=== PATIENT | male | born 1970 | race Caucasian/White ===

== ENCOUNTER 2020-10-15 09:51 | Inpatient (IN) ==
[2020-10-15 10:34] LABS: ABG Base Excess -5 mEq/L (-2 to 3); ABG HCO3 21 mEq/L (21-27); ABG Oxygen Saturation 93 % (95-98); ABG PCO2 37 mmHg (35-45); ABG PH 7.35 pH Units (7.32-7.45); ABG PO2 71 mmHg (85-104); ABG TCO2 22 mEq/L (20-26); Blood Gas Modality ASSIST CONTROL; Blood Gas VT 450 cc
[2020-10-15 10:48] LABS: Bilirubin,Urine Negative (Negative); Blood,Urine Moderate (Negative); Clarity,Urine Clear (Clear); Color,Urine Yellow (Yellow); Glucose,Urine (UA) Normal (Normal); Ketones,Urine Negative (Negative); Leukocyte Esterase,Urine Negative (Negative); Mucus,Urine Few per lpf (None-Few); Nitrite,Urine Negative (Negative); Protein,Urine Trace mg/dL (Neg-Trace); Specific Gravity,Urine 1.022 (1.010-1.025); Squamous Epithelial Cell,Urine Few per hpf (None-Few); Urobilinogen,Urine Normal (Normal); WBC,Urine 0-3 per hpf (0-3)
[2020-10-15 11:10] LABS: Amphetamine Screen,Urine Negative ng/mL (Cutoff=1000); Barbiturate Screen,Urine Negative ng/mL (Cutoff=200); Benzodiazepines Screen,Urine Positive ng/mL (Cutoff=200); Cannabinoid Screen,Urine Negative ng/mL (Cutoff = 50); Cocaine Screen,Urine Negative ng/mL (Cutoff= 300); Opiate Screen,Urine Negative ng/mL (Cutoff=300); Phencyclidine Screen,Urine Negative ng/mL (Cutoff=25)
[2020-10-15 11:10] LABS: Basophils % 0.3 %; Eosinophils % 0.1 %; Hemoglobin 12.5 g/dL (12.9-16.9)
[2020-10-15 11:12] LABS: Hematocrit 36.8 % (37.5-50.1); Immature Platelets 4.3 % (1.1-6.1); Lymphocytes % 13.2 %; Mean Corpuscular Hemoglobin 31.6 pg (28.0-33.3); Mean Corpuscular Volume 92.9 fL (83.0-100.0); Mean Platelet Volume 11.4 fL (9.4-12.4); Monocytes # 0.5 K/mcL (0.0-1.3); Monocytes % 6.1 %; Neutrophils # 5.8 K/mcL (1.6-8.9); Red Blood Count 3.96 M/mcL (4.19-5.50); Red Cell Distribution Width 16.9 % (11.5-14.5); Segmented Neutrophils % 79.3 %; White Blood Count 7.3 K/mcL (4.3-11.1)
[2020-10-15 11:21] LABS: Acetaminophen < 10 mcg/mL (10-20); Alanine Aminotransferase 45 Units/L (7-52); Albumin 2.8 g/dL (3.5-5.7); Albumin/Globulin Ratio 0.5 (1.1-2.2); Alkaline Phosphatase 127 Units/L (34-104); Aspartate Amino Transferase 89 Units/L (13-39); BUN/Creatinine Ratio 12 (6-26); Bilirubin,Direct 0.8 mg/dL (0.0-0.2); Bilirubin,Indirect 1.6 mg/dL (0.0-1.0); Bilirubin,Total 2.4 mg/dL (0.3-1.0); Blood Urea Nitrogen 15 mg/dL (6-20); Calcium 9.6 mg/dL (8.6-10.3); Carbon Dioxide 18 mEq/L (23-29); Chloride 109 mEq/L (98-107); Ethanol < 10 mg/dL (Less than 10); Globulin 5.2 g/dL (2.4-3.5); Glucose 162 mg/dL (70-105); Osmolality,Calculated 292 (280-300); Platelet Count 61 K/mcL (140-400); Potassium 3.5 mEq/L (3.5-5.1); Salicylate 12.6 mg/dL (15.0-30.0); Sodium 139 mEq/L (136-145); eGFR For African Americans > 60 (> 60); eGFR For Non-African Americans > 60 (> 60)
[2020-10-15 11:22] LABS: Platelet Estimate Decreased (Normal)
[2020-10-15 11:23] LABS: Troponin I < 0.03 ng/mL (< 0.04)
[2020-10-15] MEDS ORDERED: Cefepime HCl 1,000 MG in 0.9 % Sodium Chloride Mini Bag 100 ML IVPB ONE (12:22)
[2020-10-15] MEDS ORDERED: Naloxone 0.4 MG/ML INJ IVP PRN (13:50)
[2020-10-15] MEDS ORDERED: Artificial Tears SOLN 15 ML BOTTLE BOTH EYES PRN (13:50)
[2020-10-15] MEDS ORDERED: Acetaminophen 325 MG TABLET PO PRN (13:50)
[2020-10-15] MEDS: FentaNYL (PF) 1,000 MCG/100 ML IV.SOLN IVC SCH (14:25)
[2020-10-15] MEDS: Octreotide 400 MCG in 0.9 % Sodium Chloride 100 ML IVC SCH ×2 (14:32→23:16)
[2020-10-15] MEDS: Pantoprazole 40 MG in 0.9 % Sodium Chloride Mini Bag 100 ML IVC SCH ×3 (14:46→20:29)
[2020-10-15 14:50] LABS: INR 1.8; Prothrombin Time 20.8 Seconds (9.4-12.1)
[2020-10-15 14:53] LABS: Activated Partial Thrombo Time 36.4 Seconds (26.0-36.0)
[2020-10-15] MEDS ORDERED: Sodium Bicarbonate 150 MEQ in D5% in Water 1,000 ML IVC SCH (17:15)
[2020-10-15 17:24] LABS: ABG Base Excess -2 mEq/L (-2 to 3); ABG HCO3 22 mEq/L (21-27); ABG Oxygen Saturation 97 % (95-98); ABG PCO2 31 mmHg (35-45); ABG PH 7.45 pH Units (7.32-7.45); ABG PO2 86 mmHg (85-104); ABG TCO2 23 mEq/L (20-26); Blood Gas Modality ASSIST CONTROL; Blood Gas VT 450 cc
[2020-10-15 17:45] LABS: Hematocrit 34.1 % (37.5-50.1); Hemoglobin 11.5 g/dL (12.9-16.9)
[2020-10-15] MEDS: Cefepime HCl 2,000 MG in Water for inj. (sterile) 20 ML IVP SCH (18:40)
[2020-10-15] MEDS: Artificial Tears SOLN 15 ML BOTTLE BOTH EYES SCH ×3 (18:40→23:16)
[2020-10-15] MEDS: Budesonide/Formoterol 160/4.5 1 PUFF INH IH SCH (20:04)
[2020-10-15] MEDS: Chlorhexidine Rinse 15 ML MOUTHWASH MM SCH (20:29)
[2020-10-15] MEDS: Lactulose Oral Soln 20 GM/30 ML UDC PO SCH (20:29)
[2020-10-15] MEDS ORDERED: *HR* Etomidate 20 MG/10 ML AMPUL IVP ONE (23:32)
[2020-10-15] MEDS ORDERED: *HR* Rocuronium Bromide 50 MG/5 ML VIAL IVP ONE (23:32)
[2020-10-16] MEDS: Pantoprazole 40 MG in 0.9 % Sodium Chloride Mini Bag 100 ML IVC SCH ×4 (01:29→18:30)
[2020-10-16] MEDS: Octreotide 400 MCG in 0.9 % Sodium Chloride 100 ML IVC SCH ×3 (02:55→19:45)
[2020-10-16] MEDS: Artificial Tears SOLN 15 ML BOTTLE BOTH EYES SCH ×6 (03:06→23:23)
[2020-10-16 03:22] LABS: VBG Ionized Calcium 1.21 mmol/L (1.15-1.35)
[2020-10-16 03:26] LABS: Immature Granulocytes % 0.7 % (0-4)
[2020-10-16 03:27] LABS: Basophils % 0.7 %; Eosinophils # 0.1 K/mcL (0.0-0.6); Hemoglobin 10.9 g/dL (12.9-16.9); Immature Platelets 4.4 % (1.1-6.1); Lymphocytes # 1.7 K/mcL (0.6-4.6); Lymphocytes % 29.8 %; Mean Corpuscular Hemoglobin 31.5 pg (28.0-33.3); Mean Corpuscular Volume 95.4 fL (83.0-100.0); Mean Platelet Volume 11.8 fL (9.4-12.4); Monocytes # 0.4 K/mcL (0.0-1.3); Monocytes % 7.8 %; Neutrophils # 3.3 K/mcL (1.6-8.9); Red Blood Count 3.46 M/mcL (4.19-5.50); Red Cell Distribution Width 17.6 % (11.5-14.5); White Blood Count 5.6 K/mcL (4.3-11.1)
[2020-10-16 03:28] LABS: Platelet Count 47 K/mcL (140-400)
[2020-10-16 03:38] LABS: INR 1.8
[2020-10-16 03:39] LABS: Alanine Aminotransferase 40 Units/L (7-52); Albumin 2.3 g/dL (3.5-5.7); Albumin/Globulin Ratio 0.6 (1.1-2.2); Alkaline Phosphatase 85 Units/L (34-104); Aspartate Amino Transferase 105 Units/L (13-39); BUN/Creatinine Ratio 15 (6-26); Bilirubin,Total 1.9 mg/dL (0.3-1.0); Blood Urea Nitrogen 17 mg/dL (6-20); Calcium 8.8 mg/dL (8.6-10.3); Carbon Dioxide 24 mEq/L (23-29); Chloride 111 mEq/L (98-107); Creatine Kinase 941 Units/L (30-223); Globulin 4.1 g/dL (2.4-3.5); Glucose 124 mg/dL (70-105); Osmolality,Calculated 295 (280-300); Potassium 3.4 mEq/L (3.5-5.1); Sodium 141 mEq/L (136-145); Total Protein 6.4 g/dL (6.4-8.9); eGFR For African Americans > 60 (> 60); eGFR For Non-African Americans > 60 (> 60)
[2020-10-16 03:40] LABS: Alanine Aminotransferase 40 Units/L (7-52); Albumin 2.3 g/dL (3.5-5.7); Albumin/Globulin Ratio 0.5 (1.1-2.2); Alkaline Phosphatase 85 Units/L (34-104); Aspartate Amino Transferase 103 Units/L (13-39); BUN/Creatinine Ratio 15 (6-26); Bilirubin,Direct 0.7 mg/dL (0.0-0.2); Bilirubin,Indirect 1.3 mg/dL (0.0-1.0); Blood Urea Nitrogen 18 mg/dL (6-20); Calcium 9.1 mg/dL (8.6-10.3); Carbon Dioxide 25 mEq/L (23-29); Chloride 111 mEq/L (98-107); Globulin 4.2 g/dL (2.4-3.5); Glucose 129 mg/dL (70-105); Magnesium 1.8 mg/dL (1.6-2.6); Osmolality,Calculated 294 (280-300); Phosphorous 4.5 mg/dL (2.7-4.5); Potassium 3.4 mEq/L (3.5-5.1); Sodium 140 mEq/L (136-145); Total Protein 6.5 g/dL (6.4-8.9); eGFR For African Americans > 60 (> 60); eGFR For Non-African Americans > 60 (> 60)
[2020-10-16] MEDS: FentaNYL (PF) 1,000 MCG/100 ML IV.SOLN IVC SCH ×2 (04:10→19:30)
[2020-10-16 04:24] LABS: ABG Base Excess 1 mEq/L (-2 to 3); ABG HCO3 25 mEq/L (21-27); ABG Oxygen Saturation 91 % (95-98); ABG PCO2 38 mmHg (35-45); ABG PH 7.43 pH Units (7.32-7.45); ABG PO2 58 mmHg (85-104); ABG TCO2 26 mEq/L (20-26); Blood Gas Modality ASSIST CONTROL; Blood Gas VT 450 cc
[2020-10-16] MEDS: Cefepime HCl 2,000 MG in Water for inj. (sterile) 20 ML IVP SCH ×2 (05:19→17:09)
[2020-10-16] MEDS: Chlorhexidine Rinse 15 ML MOUTHWASH MM SCH ×2 (07:47→21:13)
[2020-10-16] MEDS: Budesonide/Formoterol 160/4.5 1 PUFF INH IH SCH ×2 (07:47→20:24)
[2020-10-16] MEDS: Lactulose Oral Soln 20 GM/30 ML UDC PO SCH ×2 (07:47→21:11)
[2020-10-16 22:19] LABS: Amphetamine Screen,Urine Negative ng/mL (Cutoff=1000); Barbiturate Screen,Urine Negative ng/mL (Cutoff=200); Benzodiazepines Screen,Urine Positive ng/mL (Cutoff=200); Cannabinoid Screen,Urine Negative ng/mL (Cutoff = 50); Cocaine Screen,Urine Negative ng/mL (Cutoff= 300); Opiate Screen,Urine Negative ng/mL (Cutoff=300); Phencyclidine Screen,Urine Negative ng/mL (Cutoff=25)
[2020-10-17] MEDS: Pantoprazole 40 MG in 0.9 % Sodium Chloride Mini Bag 100 ML IVC SCH ×2 (00:07→05:43)
[2020-10-17] MEDS: Artificial Tears SOLN 15 ML BOTTLE BOTH EYES SCH ×6 (04:34→23:11)
[2020-10-17] MEDS: Octreotide 400 MCG in 0.9 % Sodium Chloride 100 ML IVC SCH (04:35)
[2020-10-17 04:38] LABS: ABG Base Excess 0 mEq/L (-2 to 3); ABG HCO3 27 mEq/L (21-27); ABG Oxygen Saturation 93 % (95-98); ABG PCO2 48 mmHg (35-45); ABG PH 7.36 pH Units (7.32-7.45); ABG PO2 71 mmHg (85-104); ABG TCO2 28 mEq/L (20-26); Blood Gas Modality ASSIST CONTROL; Blood Gas VT 450 cc
[2020-10-17] MEDS: Cefepime HCl 2,000 MG in Water for inj. (sterile) 20 ML IVP SCH ×2 (05:44→17:28)
[2020-10-17 06:44] LABS: Red Cell Distribution Width 18.1 % (11.5-14.5)
[2020-10-17 06:46] LABS: Basophils # 0.1 K/mcL (0.0-0.2); Basophils % 1.3 %; Eosinophils # 0.1 K/mcL (0.0-0.6); Eosinophils % 2.5 %; Hematocrit 34.6 % (37.5-50.1); Hemoglobin 11.1 g/dL (12.9-16.9); Immature Granulocytes % 0.8 % (0-4); Immature Platelets 3.9 % (1.1-6.1); Lymphocytes # 1.3 K/mcL (0.6-4.6); Lymphocytes % 27.1 %; Mean Corpuscular HGB Conc 32.1 g/dL (31.6-35.5); Mean Corpuscular Hemoglobin 31.9 pg (28.0-33.3); Mean Corpuscular Volume 99.4 fL (83.0-100.0); Mean Platelet Volume 11.1 fL (9.4-12.4); Monocytes # 0.4 K/mcL (0.0-1.3); Monocytes % 8.2 %; Neutrophils # 2.9 K/mcL (1.6-8.9); Nucleated Red Blood Cells 0.6 /100 WBC (0); Platelet Count 50 K/mcL (140-400); Red Blood Count 3.48 M/mcL (4.19-5.50); Segmented Neutrophils % 60.1 %; White Blood Count 4.8 K/mcL (4.3-11.1)
[2020-10-17 07:02] LABS: BUN/Creatinine Ratio 18 (6-26); Blood Urea Nitrogen 26 mg/dL (6-20); Calcium 8.9 mg/dL (8.6-10.3); Carbon Dioxide 25 mEq/L (23-29); Chloride 110 mEq/L (98-107); Glucose 93 mg/dL (70-105); Magnesium 2.1 mg/dL (1.6-2.6); Osmolality,Calculated 288 (280-300); Sodium 137 mEq/L (136-145); eGFR For African Americans > 60 (> 60); eGFR For Non-African Americans 50 (> 60)
[2020-10-17] MEDS: Budesonide/Formoterol 160/4.5 1 PUFF INH IH SCH ×2 (07:54→19:34)
[2020-10-17] MEDS: Lactulose Oral Soln 20 GM/30 ML UDC PO SCH (07:54)
[2020-10-17] MEDS: Chlorhexidine Rinse 15 ML MOUTHWASH MM SCH ×2 (07:54→19:20)
[2020-10-17] MEDS: FentaNYL (PF) 1,000 MCG/100 ML IV.SOLN IVC SCH ×2 (10:50→20:43)
[2020-10-17] MEDS ORDERED: Lactulose 200 GM, Sodium Chloride IRRigation 700 ML RC ONE (11:34)
[2020-10-17] MEDS: D5% in 0.45% NACL 1,000 ML IVC SCH ×2 (12:04→20:44)
[2020-10-17 15:15] LABS: Alanine Aminotransferase 49 Units/L (7-52); Albumin 2.3 g/dL (3.5-5.7); Albumin/Globulin Ratio 0.5 (1.1-2.2); Alkaline Phosphatase 74 Units/L (34-104); Aspartate Amino Transferase 139 Units/L (13-39); Bilirubin,Direct 1.3 mg/dL (0.0-0.2); Bilirubin,Indirect 1.8 mg/dL (0.0-1.0); Bilirubin,Total 3.1 mg/dL (0.3-1.0); Globulin 4.3 g/dL (2.4-3.5); Total Protein 6.6 g/dL (6.4-8.9)
[2020-10-18] MEDS: Artificial Tears SOLN 15 ML BOTTLE BOTH EYES SCH ×5 (04:11→20:17)
[2020-10-18] MEDS: FentaNYL (PF) 1,000 MCG/100 ML IV.SOLN IVC SCH ×2 (04:23→13:19)
[2020-10-18 04:31] LABS: ABG Base Excess 1 mEq/L (-2 to 3); ABG HCO3 27 mEq/L (21-27); ABG Oxygen Saturation 89 % (95-98); ABG PCO2 53 mmHg (35-45); ABG PH 7.32 pH Units (7.32-7.45); ABG PO2 63 mmHg (85-104); ABG TCO2 29 mEq/L (20-26); Blood Gas Modality ASSIST CONTROL; Blood Gas VT 450 cc
[2020-10-18] MEDS: D5% in 0.45% NACL 1,000 ML IVC SCH ×2 (05:15→17:34)
[2020-10-18] MEDS: Cefepime HCl 2,000 MG in Water for inj. (sterile) 20 ML IVP SCH ×2 (05:16→17:30)
[2020-10-18 05:28] LABS: Mean Corpuscular Volume 99.4 fL (83.0-100.0)
[2020-10-18 05:30] LABS: Basophils % 0.7 %; Eosinophils # 0.1 K/mcL (0.0-0.6); Eosinophils % 2.1 %; Hematocrit 33.4 % (37.5-50.1); Hemoglobin 10.7 g/dL (12.9-16.9); Immature Granulocytes % 0.9 % (0-4); Immature Platelets 2.6 % (1.1-6.1); Lymphocytes # 1.1 K/mcL (0.6-4.6); Lymphocytes % 24.8 %; Mean Corpuscular Hemoglobin 31.8 pg (28.0-33.3); Mean Platelet Volume 11.2 fL (9.4-12.4); Monocytes # 0.3 K/mcL (0.0-1.3); Monocytes % 6.7 %; Neutrophils # 2.8 K/mcL (1.6-8.9); Nucleated Red Blood Cells 0.5 /100 WBC (0); Red Blood Count 3.36 M/mcL (4.19-5.50); Red Cell Distribution Width 17.3 % (11.5-14.5); Segmented Neutrophils % 64.8 %; White Blood Count 4.3 K/mcL (4.3-11.1)
[2020-10-18 05:31] LABS: INR 1.6; Platelet Count 47 K/mcL (140-400); Prothrombin Time 18.4 Seconds (9.4-12.1)
[2020-10-18 05:34] LABS: Activated Partial Thrombo Time 35.8 Seconds (26.0-36.0)
[2020-10-18 05:39] LABS: BUN/Creatinine Ratio 20 (6-26); Blood Urea Nitrogen 27 mg/dL (6-20); Calcium 8.6 mg/dL (8.6-10.3); Carbon Dioxide 26 mEq/L (23-29); Chloride 111 mEq/L (98-107); Creatine Kinase 312 Units/L (30-223); Glucose 85 mg/dL (70-105); Magnesium 1.9 mg/dL (1.6-2.6); Osmolality,Calculated 290 (280-300); Phosphorous 3.8 mg/dL (2.7-4.5); Potassium 4.2 mEq/L (3.5-5.1); Sodium 138 mEq/L (136-145); eGFR For African Americans > 60 (> 60); eGFR For Non-African Americans 56 (> 60)
[2020-10-18 05:40] LABS: Albumin 2.2 g/dL (3.5-5.7); Albumin/Globulin Ratio 0.6 (1.1-2.2); Bilirubin,Direct 2.6 mg/dL (0.0-0.2); Bilirubin,Indirect 1.6 mg/dL (0.0-1.0); Bilirubin,Total 4.2 mg/dL (0.3-1.0); Total Protein 6.2 g/dL (6.4-8.9)
[2020-10-18] MEDS: Budesonide/Formoterol 160/4.5 1 PUFF INH IH SCH ×2 (07:31→20:12)
[2020-10-18] MEDS: Chlorhexidine Rinse 15 ML MOUTHWASH MM SCH ×2 (08:01→21:28)
[2020-10-18] MEDS: Pantoprazole 40 MG VIAL IVP SCH (08:01)
[2020-10-18] MEDS: Dexmedetomidine HCl 400 MCG/100 ML MLS IVC SCH (11:30)
[2020-10-18] MEDS ORDERED: Lactulose 200 GM, Sodium Chloride IRRigation 700 ML RC ONE (12:23)
[2020-10-19] MEDS: Cefepime HCl 2,000 MG in Water for inj. (sterile) 20 ML IVP SCH ×2 (05:51→17:06)
[2020-10-19] MEDS: D5% in 0.45% NACL 1,000 ML IVC SCH ×2 (05:52→13:28)
[2020-10-19 06:21] LABS: Hemoglobin 10.4 g/dL (12.9-16.9); Mean Corpuscular Volume 96.6 fL (83.0-100.0)
[2020-10-19 06:23] LABS: Basophils % 0.7 %; Eosinophils # 0.1 K/mcL (0.0-0.6); Eosinophils % 1.6 %; Hematocrit 31.1 % (37.5-50.1); Immature Granulocytes % 0.7 % (0-4); Lymphocytes # 0.9 K/mcL (0.6-4.6); Lymphocytes % 19.5 %; Mean Corpuscular HGB Conc 33.4 g/dL (31.6-35.5); Mean Corpuscular Hemoglobin 32.3 pg (28.0-33.3); Monocytes # 0.3 K/mcL (0.0-1.3); Monocytes % 5.6 %; Neutrophils # 3.2 K/mcL (1.6-8.9); Nucleated Red Blood Cells 0.4 /100 WBC (0); Red Blood Count 3.22 M/mcL (4.19-5.50); Red Cell Distribution Width 16.8 % (11.5-14.5); Segmented Neutrophils % 71.9 %; White Blood Count 4.5 K/mcL (4.3-11.1)
[2020-10-19 06:26] LABS: Platelet Count 44 K/mcL (140-400)
[2020-10-19 06:48] LABS: Alanine Aminotransferase 47 Units/L (7-52); Albumin 2.2 g/dL (3.5-5.7); Albumin/Globulin Ratio 0.6 (1.1-2.2); Alkaline Phosphatase 62 Units/L (34-104); Aspartate Amino Transferase 152 Units/L (13-39); BUN/Creatinine Ratio 24 (6-26); Bilirubin,Direct 4.7 mg/dL (0.0-0.2); Bilirubin,Indirect 2.6 mg/dL (0.0-1.0); Bilirubin,Total 7.3 mg/dL (0.3-1.0); Blood Urea Nitrogen 27 mg/dL (6-20); Calcium 8.9 mg/dL (8.6-10.3); Carbon Dioxide 24 mEq/L (23-29); Chloride 113 mEq/L (98-107); Globulin 3.8 g/dL (2.4-3.5); Glucose 103 mg/dL (70-105); Osmolality,Calculated 297 (280-300); Potassium 4.1 mEq/L (3.5-5.1); Sodium 141 mEq/L (136-145); eGFR For African Americans > 60 (> 60); eGFR For Non-African Americans > 60 (> 60)
[2020-10-19] MEDS: Chlorhexidine Rinse 15 ML MOUTHWASH MM SCH (07:27)
[2020-10-19] MEDS: Pantoprazole 40 MG VIAL IVP SCH (07:27)
[2020-10-19] MEDS: Budesonide/Formoterol 160/4.5 1 PUFF INH IH SCH ×2 (07:38→19:38)
[2020-10-19] MEDS: Lactulose Oral Soln 20 GM/30 ML UDC PO SCH ×2 (09:10→20:45)
[2020-10-19] MEDS ORDERED: ALPRAZolam 0.5 MG TABLET PO PRN ×3 (09:30→16:13)
[2020-10-19] MEDS ORDERED: LACTULOSE 10 GM/15 ML PO SCH (09:45)
[2020-10-19] MEDS: Dexmedetomidine HCl 400 MCG/100 ML MLS IVC SCH (09:52)
[2020-10-19] MEDS ORDERED: Artificial Tears SOLN 15 ML BOTTLE BOTH EYES PRN ×2 (15:23→16:13)
[2020-10-19] MEDS ORDERED: Cefepime HCl 2,000 MG in Water for inj. (sterile) 20 ML IVP SCH (16:00)
[2020-10-20] MEDS: Cefepime HCl 2,000 MG in Water for inj. (sterile) 20 ML IVP SCH ×2 (05:56→17:57)
[2020-10-20] MEDS: Lactulose Oral Soln 20 GM/30 ML UDC PO SCH ×4 (08:00→21:25)
[2020-10-20] MEDS: Budesonide/Formoterol 160/4.5 1 PUFF INH IH SCH ×2 (08:18→22:22)
[2020-10-20] MEDS ORDERED: Melatonin 3 MG TABLET PO PRN (08:29)
[2020-10-20] MEDS ORDERED: Ipratropium/Albuterol Neb 3 ML IH PRN (08:29)
[2020-10-20] MEDS ORDERED: D5% in Water 1,000 ML IVC PRN (08:33)
[2020-10-20] MEDS ORDERED: Dextrose Gel 15 GM/37.5 ML TUBE PO PRN ×2 (08:33)
[2020-10-20] MEDS ORDERED: *HR* Dextrose 50 % in Water (Vial) 50 ML VIAL IVP PRN (08:33)
[2020-10-20] MEDS ORDERED: Furosemide 40 MG TABLET PO SCH (09:00)
[2020-10-20] MEDS ORDERED: Furosemide 20 MG TABLET PO SCH ×2 (09:00→11:00)
[2020-10-20] MEDS ORDERED: Spironolactone 12.5 MG TABLET PO SCH (09:00)
[2020-10-20] MEDS ORDERED: Finasteride 5 MG TABLET PO SCH ×2 (09:00)
[2020-10-20] MEDS ORDERED: Multivit/Ca/Min/Fe/FA 1 TAB TABLET PO SCH (09:00)
[2020-10-20] MEDS: Chlorhexidine Rinse 15 ML MOUTHWASH MM SCH ×2 (09:06→21:25)
[2020-10-20] MEDS: Albumin 25% 25gram/100mL 25 GM/100 ML IV.SOLN IVPB SCH ×2 (09:06→21:25)
[2020-10-20 10:32] LABS: VBG Ionized Calcium 1.17 mmol/L (1.15-1.35)
[2020-10-20 10:52] LABS: Alanine Aminotransferase 52 Units/L (7-52); Albumin 2.7 g/dL (3.5-5.7); Albumin/Globulin Ratio 0.6 (1.1-2.2); Alkaline Phosphatase 66 Units/L (34-104); Aspartate Amino Transferase 157 Units/L (13-39); BUN/Creatinine Ratio 21 (6-26); Bilirubin,Total 8.2 mg/dL (0.3-1.0); Blood Urea Nitrogen 21 mg/dL (6-20); Calcium 8.9 mg/dL (8.6-10.3); Carbon Dioxide 23 mEq/L (23-29); Chloride 107 mEq/L (98-107); Globulin 4.3 g/dL (2.4-3.5); Glucose 140 mg/dL (70-105); Magnesium 1.9 mg/dL (1.6-2.6); Osmolality,Calculated 285 (280-300); Potassium 3.7 mEq/L (3.5-5.1); Sodium 135 mEq/L (136-145); eGFR For African Americans > 60 (> 60); eGFR For Non-African Americans > 60 (> 60)
[2020-10-20] MEDS: Ipratropium/Albuterol Neb 3 ML IH SCH ×3 (11:39→22:22)
[2020-10-20] MEDS ORDERED: Ondansetron 4 MG/2 ML VIAL IVP ONE (12:52)
[2020-10-20] MEDS ORDERED: Ondansetron 4 MG/2 ML VIAL ONE (12:55)
[2020-10-20 14:54] LABS: Amylase,Peritoneal Fluid 38 Units/L (No Ref Range); Glucose,Peritoneal Fluid 141 mg/dL (No Ref Range); LDH,Peritoneal Fluid 29 Units/L (No Ref Range); Total Protein,Peritoneal Fluid < 2.0 g/dL
[2020-10-20 14:55] LABS: Lymphocytes % 12.6 %; Segmented Neutrophils % 80.5 %
[2020-10-20 14:57] LABS: Basophils % 0.4 %; Eosinophils # 0.1 K/mcL (0.0-0.6); Eosinophils % 1.2 %; Hematocrit 35.5 % (37.5-50.1); Hemoglobin 11.7 g/dL (12.9-16.9); Immature Granulocytes % 0.8 % (0-4); Immature Platelets 3.9 % (1.1-6.1); Lymphocytes # 0.6 K/mcL (0.6-4.6); Mean Corpuscular Hemoglobin 32.1 pg (28.0-33.3); Mean Corpuscular Volume 97.5 fL (83.0-100.0); Monocytes # 0.2 K/mcL (0.0-1.3); Monocytes % 4.5 %; Neutrophils # 3.9 K/mcL (1.6-8.9); Platelet Count 38 K/mcL (140-400); Red Blood Count 3.64 M/mcL (4.19-5.50); Red Cell Distribution Width 17.9 % (11.5-14.5); White Blood Count 4.9 K/mcL (4.3-11.1)
[2020-10-20 15:06] LABS: INR 1.7; Prothrombin Time 19.7 Seconds (9.4-12.1)
[2020-10-20 15:46] LABS: Appearance of Body Fluid Clear (Clear); Volume of Body Fluid 60 mL
[2020-10-20] MEDS ORDERED: Potassium Phosphate 44 MEQ in 0.9 % Sodium Chloride 250 ML IVPB ONE (16:16)
[2020-10-20 19:39] VITALS: BP 95/57
== END 2020-10-20 23:33 | disposition short-term general hospital (02) ==
LOC: EMEROOARM 09:51 → SUATTDRO 16:12 → ICNU 16:12 → 3ANU 10-20 17:06
PROVIDERS: ADMIT Pediatrics; ATTEND Internal Medicine

== ENCOUNTER 2022-01-25 12:27 | Inpatient (IN) ==
[2022-01-25] MEDS ORDERED: cefTRIAXone 1,000 MG in 0.9 % Sodium Chloride Mini Bag 100 ML IVPB ONE (14:39)
[2022-01-25] MEDS ORDERED: Tdap (Boostrix) Vaccine 0.5 ML SYRINGE IM ONE (14:39)
[2022-01-25] MEDS ORDERED: *HR* FentaNYL (PF) 100 MCG/2 ML VIAL IVP ONE (14:39)
[2022-01-25 15:23] LABS: Mean Corpuscular Volume 78.1 fL (83.0-100.0)
[2022-01-25 15:25] LABS: Hematocrit 32.1 % (37.5-50.1); Hemoglobin 10.6 g/dL (12.9-16.9); Immature Platelets 6.4 % (1.1-6.1); Lymphocytes # 0.3 K/mcL (0.6-4.6); Mean Corpuscular Hemoglobin 25.8 pg (28.0-33.3); Mean Platelet Volume 11.7 fL (9.4-12.4); Monocytes # 0.2 K/mcL (0.0-1.3); Red Blood Count 4.11 M/mcL (4.19-5.50); Red Cell Distribution Width 14.2 % (11.5-14.5)
[2022-01-25 15:37] LABS: Platelet Count 53 K/mcL (140-400)
[2022-01-25 15:42] LABS: Calcium 9.8 mg/dL (8.6-10.3); Potassium 4.7 mEq/L (3.5-5.1); White Blood Count 0.5 K/mcL (4.3-11.1)
[2022-01-25 16:39] LABS: Reactive Lymphocytes Present (Not Present)
[2022-01-25 16:40] LABS: Platelet Estimate Decreased (Normal)
[2022-01-25] MEDS ORDERED: Ondansetron 4 MG/2 ML VIAL IVP ONE (16:55)
[2022-01-25] MEDS ORDERED: Ondansetron 4 MG/2 ML VIAL IVP PRN (17:44)
[2022-01-25] MEDS ORDERED: Naloxone 0.4 MG/ML INJ IVP PRN (17:44)
[2022-01-25] MEDS ORDERED: Melatonin 3 MG TABLET PO PRN (17:44)
[2022-01-25] MEDS ORDERED: 0.9 % Sodium Chloride 1,000 ML IVC ONE (17:54)
[2022-01-25 18:47] LABS: INR 1.5; Prothrombin Time 16.6 Seconds (9.4-12.1)
[2022-01-25 19:12] LABS: Albumin 4.3 g/dL (3.5-5.7); Albumin/Globulin Ratio 1.7 (1.1-2.2); Bilirubin,Direct 0.4 mg/dL (0.0-0.2); Bilirubin,Indirect 1.1 mg/dL (0.0-1.0); Bilirubin,Total 1.5 mg/dL (0.3-1.0); Globulin 2.6 g/dL (2.4-3.5); Total Protein 6.9 g/dL (6.4-8.9)
[2022-01-25] MEDS ORDERED: Acetaminophen 325 MG TABLET PO ONE (20:04)
[2022-01-26] MEDS: CeFAZolin 2,000 MG/120 ML BAG IVPB SCH ×3 (00:21→16:31)
[2022-01-26 03:16] LABS: Mean Corpuscular HGB Conc 32.8 g/dL (31.6-35.5); Mean Corpuscular Hemoglobin 25.9 pg (28.0-33.3)
[2022-01-26 03:18] LABS: Basophils % 1.9 %; Eosinophils % 1.9 %; Hematocrit 29.6 % (37.5-50.1); Hemoglobin 9.7 g/dL (12.9-16.9); Immature Platelets 6.7 % (1.1-6.1); Lymphocytes # 0.3 K/mcL (0.6-4.6); Lymphocytes % 57.7 %; Mean Corpuscular Volume 78.9 fL (83.0-100.0); Monocytes # 0.2 K/mcL (0.0-1.3); Monocytes % 32.7 %; Red Blood Count 3.75 M/mcL (4.19-5.50); Red Cell Distribution Width 14.1 % (11.5-14.5); Segmented Neutrophils % 5.8 %
[2022-01-26 03:23] LABS: Platelet Count 42 K/mcL (140-400)
[2022-01-26 03:25] LABS: White Blood Count 0.5 K/mcL (4.3-11.1)
[2022-01-26 03:38] LABS: Albumin/Globulin Ratio 1.6 (1.1-2.2); Bilirubin,Direct 0.3 mg/dL (0.0-0.2); Bilirubin,Total 1.3 mg/dL (0.3-1.0); Calcium 8.8 mg/dL (8.6-10.3); Globulin 2.5 g/dL (2.4-3.5); Magnesium 1.5 mg/dL (1.6-2.6); Phosphorous 3.7 mg/dL (2.7-4.5); Potassium 4.5 mEq/L (3.5-5.1); Total Protein 6.5 g/dL (6.4-8.9)
[2022-01-26 03:54] LABS: Platelet Estimate Decreased (Normal)
[2022-01-26] MEDS: *HR* Buprenorphine HCl 8 MG TAB.SUBL SL SCH (09:23)
[2022-01-26] MEDS ORDERED: *HR* HYDROmorphone PF 0.5 MG/0.5 ML SYRINGE IVP PRN ×2 (10:39→10:41)
[2022-01-26] MEDS ORDERED: *HR* FentaNYL (PF) 100 MCG/2 ML VIAL IVP PRN (10:41)
[2022-01-26] MEDS ORDERED: *HR* Propofol 200 MG/20 ML VIAL IVP ONE (10:44)
[2022-01-26] MEDS ORDERED: Ondansetron 4 MG/2 ML VIAL ONE (10:44)
[2022-01-26] MEDS ORDERED: Lidocaine -MPF 2% 5 ML VIAL ONE (10:44)
[2022-01-26] MEDS ORDERED: *HR* Midazolam HCl 2 MG/2 ML VIAL ONE (10:44)
[2022-01-26] MEDS ORDERED: *HR* HYDROmorphone (PF) 1 MG/ML SYRINGE IVP PRN (10:51)
[2022-01-26] MEDS ORDERED: Lidocaine/EPI 1:100k 1% 50 ML VIAL ONE (11:04)
[2022-01-26] MEDS ORDERED: polyethylene glycoL 3350 17 GM POWD.PACK PO PRN (11:43)
[2022-01-26] MEDS: TACROLIMUS 1 MG PO SCH (14:43)
[2022-01-26] MEDS: Gabapentin 300 MG CAPSULE PO PRN (16:31)
[2022-01-26] MEDS ORDERED: TACROLIMUS 1 MG PO SCH ×2 (18:00)
[2022-01-26] MEDS: Cholecalciferol (D-3) 1,000 UNIT (25MCG) TABLET PO SCH (20:16)
[2022-01-27] MEDS: CeFAZolin 2,000 MG/120 ML BAG IVPB SCH ×2 (00:43→08:08)
[2022-01-27 04:03] LABS: Hemoglobin 9.4 g/dL (12.9-16.9); Immature Platelets 7.9 % (1.1-6.1); Lymphocytes # 0.8 K/mcL (0.6-4.6); Mean Corpuscular HGB Conc 33.6 g/dL (31.6-35.5); Mean Corpuscular Hemoglobin 26.1 pg (28.0-33.3); Mean Corpuscular Volume 77.8 fL (83.0-100.0); Red Cell Distribution Width 14.1 % (11.5-14.5); White Blood Count 1.1 K/mcL (4.3-11.1)
[2022-01-27 04:12] LABS: Platelet Count 40 K/mcL (140-400)
[2022-01-27 04:25] LABS: Albumin 3.8 g/dL (3.5-5.7); Albumin/Globulin Ratio 1.4 (1.1-2.2); Bilirubin,Direct 0.2 mg/dL (0.0-0.2); Bilirubin,Indirect 0.7 mg/dL (0.0-1.0); Bilirubin,Total 0.9 mg/dL (0.3-1.0); Calcium 8.8 mg/dL (8.6-10.3); Globulin 2.7 g/dL (2.4-3.5); Potassium 3.9 mEq/L (3.5-5.1); Total Protein 6.5 g/dL (6.4-8.9)
[2022-01-27 04:58] LABS: Monocytes # 0.1 K/mcL (0.0-1.3); Neutrophils # 0.2 K/mcL (1.6-8.9); Platelet Estimate Decreased (Normal)
[2022-01-27] MEDS: Gabapentin 300 MG CAPSULE PO PRN (05:18)
[2022-01-27] MEDS: TACROLIMUS 1 MG PO SCH (08:08)
[2022-01-27] MEDS: *HR* Buprenorphine HCl 8 MG TAB.SUBL SL SCH (08:08)
[2022-01-27] MEDS: Cholecalciferol (D-3) 1,000 UNIT (25MCG) TABLET PO SCH (08:08)
[2022-01-27] MEDS ORDERED: Finasteride 5 MG TABLET PO SCH (09:00)
[2022-01-27] MEDS ORDERED: Magnesium Oxide 400 MG TABLET PO SCH (09:00)
[2022-01-27] MEDS ORDERED: TACROLIMUS 1 MG PO SCH (09:00)
[2022-01-27 15:39] VITALS: BP 148/91; PULSE 99; TEMP 99.3; O2SAT 99
[2022-01-27] MEDS ORDERED: Ibuprofen 600 MG TABLET PO PRN (15:55)
== END 2022-01-27 16:37 | disposition left against medical advice (07) | DRG 710 ==
LOC: 3ANU 12:27 → EMEROOARM 12:27 → SUATTDRO 17:30 → 3ANU 18:13
PROVIDERS: ADMIT Internal Medicine; ATTEND Internal Medicine